=== PATIENT | male | born 1965 | race Caucasian/White ===

== ENCOUNTER → 2019-02-08 | Outpatient (CLI) | payer OTHER | LOC: M.WC 08:30 | DX: S71.101A Unspecified open wound, right thigh, initial encounter (principal); M19.90 Unspecified osteoarthritis, unspecified site; F41.9 Anxiety disorder, unspecified; F32.9 Major depressive disorder, single episode, unspecified; Z90.49 Acquired absence of other specified parts of digestive tract; X58.XXXA Exposure to other specified factors, initial encounter; Y93.89 Activity, other specified; Y92.89 Other specified places as the place of occurrence of the external cause; Y99.8 Other external cause status ==

== ENCOUNTER → 2019-02-23 | Outpatient (CLI) | payer OTHER | LOC: M.WC 01:41 | DX: S71.101D Unspecified open wound, right thigh, subsequent encounter (principal); M19.90 Unspecified osteoarthritis, unspecified site; X58.XXXD Exposure to other specified factors, subsequent encounter ==

== ENCOUNTER → 2019-03-02 | Outpatient (CLI) | payer OTHER | LOC: M.WC 04:39 | DX: S71.101D Unspecified open wound, right thigh, subsequent encounter (principal); M19.90 Unspecified osteoarthritis, unspecified site; W31.89XD Contact with other specified machinery, subsequent encounter ==

== ENCOUNTER → 2019-03-09 | Outpatient (CLI) | payer OTHER | LOC: M.WC 05:02 | DX: S71.101D Unspecified open wound, right thigh, subsequent encounter (principal); M19.90 Unspecified osteoarthritis, unspecified site; W31.89XD Contact with other specified machinery, subsequent encounter ==

== ENCOUNTER → 2019-03-16 | Outpatient (CLI) | payer OTHER | LOC: M.WC 04:50 | DX: S71.101D Unspecified open wound, right thigh, subsequent encounter (principal); M19.90 Unspecified osteoarthritis, unspecified site; W31.89XD Contact with other specified machinery, subsequent encounter ==